=== PATIENT | female | born 1960 | race Caucasian/White ===

== ENCOUNTER 2016-05-12 04:55 | Emergency (ER) | payer OTHER ==
[~2016-05-12] VITALS: Ht 157.5 cm; Wt 86.3 kg
[~2016-05-12 04:55] MED LIST: FLOMAX0.4 MG PO; IBUPROFEN400 MG PO; KEFLEX500 MG PO; MOTRIN IB200 MG PO; MOTRIN800 MG PO; NAPROSYN500 MG PO; NORCO 5/3251 TABLET PO; ZOFRAN ODT4 MG PO
[2016-05-12 05:44] LABS: CHLORIDE 106 mEq/L (99-109); POTASSIUM 3.6 mEq/L (3.7-5.4); SODIUM 139 mEq/L (136-147)
[2016-05-12 05:46] LABS: GLUCOSE 143 mg/dL (70-99)
[2016-05-12 05:48] LABS: ANION GAP 13 MEQ/L (2-14)
[2016-05-12 05:50] LABS: GFR ESTIMATE (CALCULATED) > 59 mL/min/
[2016-05-12 05:51] LABS: UREA NITROGEN (BUN) 13 mg/dL (9-23)
[2016-05-12 05:59] LABS: HEMATOCRIT 43.7 % (36.0-46.0); MCH 30.2 PG (29.0-34.0); MCV 91.6 FL (83-99); MEAN PLAT.VOLUME 11.5 uM^3 (9.5-12.4); PLATELET COUNT 306 K/uL (156-360); RBC DIS.WIDTH-CV 12.6 % (11.8-14.6); RBC DIS.WIDTH-SD 41.7 % (39-53); RED BLOOD COUNT 4.77 M/uL (3.80-5.20)
[2016-05-12] MEDS ORDERED: PREDNISONE50 MG PO (05:59)
[2016-05-12] MEDS ORDERED: DOXYCYCLINE HY100 MG PO (05:59)
[2016-05-12] MEDS ORDERED: HYCODAN SYRUP480 ML PO (05:59)
[2016-05-12 06:36] VITALS: BP 142/77
== END 2016-05-12 06:38 | disposition home or self-care (01) ==
LOC: EME 04:55
DX: J20.9 Acute bronchitis, unspecified (principal); J02.0 Streptococcal pharyngitis; R51 Headache
CPT/HCPCS: 71020; 80048; 85027; 99281; 99285; J2930; J7030

== ENCOUNTER 2016-10-24 21:35 | Emergency (ER) | payer OTHER ==
[~2016-10-24] VITALS: Ht 157.5 cm; Wt 88.3 kg
[~2016-10-24 21:35] MED LIST changes: +DOXYCYCLINE HY100 MG PO; +HYCODAN SYRUP480 ML PO; +PREDNISONE50 MG PO
[2016-10-24 23:10] LABS: HEMATOCRIT 48.4 % (36.0-46.0); MCH 30.3 PG (29.0-34.0); MCHC 32.9 G/DL (30.0-36.0); MCV 92.2 FL (83-99); PLATELET COUNT 274 K/uL (156-360); RBC DIS.WIDTH-CV 13.9 % (11.8-14.6); RED BLOOD COUNT 5.25 M/uL (3.80-5.20)
[2016-10-24 23:19] LABS: CHLORIDE 104 mEq/L (99-109); POTASSIUM 3.8 mEq/L (3.7-5.4); SODIUM 136 mEq/L (136-147)
[2016-10-24 23:21] LABS: GLUCOSE 110 mg/dL (70-99)
[2016-10-24 23:22] LABS: ANION GAP 10 MEQ/L (2-14)
[2016-10-24 23:25] LABS: GFR ESTIMATE (CALCULATED) > 59 mL/min/; UREA NITROGEN (BUN) 16 mg/dL (9-23)
[2016-10-25 00:46] LABS: TOTAL BILIRUBIN 0.6 mg/dL (0.0-1.0)
[2016-10-25 00:47] LABS: ALKALINE PHOSPHATASE 103 IU/L (3-129)
[2016-10-25 00:49] LABS: DIRECT BILIRUBIN 0.2 mg/dL (0.0-0.3)
[2016-10-25 00:50] LABS: LIPASE 25 U/L (1.0-51.0)
[2016-10-25 02:32] LABS: ADD MIUA? YES; BILIRUBIN NEGATIVE; BLOOD LARGE; COLOR YELLOW ((YELLOW)); GLUCOSE (STRIP) NEGATIVE; KETONES NEGATIVE; LEUKOCYTES TRACE; NITRITE NEGATIVE; PROTEIN (STRIP) NEGATIVE; SPECIFIC GRAVITY 1.011 (1.000-1.030); UROBILINOGEN 0.2 MG/DL (0.2-1.0)
[2016-10-25 02:38] LABS: BACTERIA RARE /HPF; EPITHELIAL CELLS 1+ /HPF; MUCUS 2+ /LPF; RED BLOOD CELLS 40-50 /HPF (0-5); UCUL ADDED? NO
[2016-10-25] MEDS ORDERED: ZOFRAN ODT4 MG PO (02:57)
[2016-10-25] MEDS ORDERED: MOTRIN800 MG PO (02:57)
[2016-10-25 03:28] VITALS: BP 145/88
== END 2016-10-25 03:29 | disposition home or self-care (01) ==
LOC: EME 21:35
DX: N13.2 Hydronephrosis with renal and ureteral calculous obstruction (principal); D25.9 Leiomyoma of uterus, unspecified; Z97.5 Presence of (intrauterine) contraceptive device; Z87.442 Personal history of urinary calculi
CPT/HCPCS: 74176; 80048; 80076; 81003; 83690; 85027; 87086; 99281; 99284; J1885

== ENCOUNTER 2016-11-03 09:07 | Inpatient (IN) | payer OTHER ==
[~2016-11-03] VITALS: Ht 157.5 cm; Wt 87.7 kg
[2016-11-03 10:20] LABS: ADD MIUA? YES; BILIRUBIN NEGATIVE; BLOOD SMALL; COLOR AMBER ((YELLOW)); GLUCOSE (STRIP) NEGATIVE; KETONES 5; LEUKOCYTES NEGATIVE; NITRITE POSITIVE; PROTEIN (STRIP) 30; SPECIFIC GRAVITY 1.017 (1.000-1.030)
[2016-11-03 10:23] LABS: MCH 30.1 PG (29.0-34.0); MCHC 32.2 G/DL (30.0-36.0); MCV 93.6 FL (83-99); MEAN PLAT.VOLUME 11.1 uM^3 (9.5-12.4); PLATELET COUNT 257 K/uL (156-360); RBC DIS.WIDTH-CV 13.8 % (11.8-14.6); RBC DIS.WIDTH-SD 47.2 % (39-53); RED BLOOD COUNT 4.81 M/uL (3.80-5.20); WHITE BLOOD COUNT 13.6 K/uL (4.1-10.2)
[2016-11-03 10:50] LABS: BACTERIA 1+ /HPF; BUDDING YEAST 2+; EPITHELIAL CELLS 4+ /HPF; MUCUS TRACE /LPF; RED BLOOD CELLS 30-40 /HPF (0-5); UCUL ADDED? NO
[2016-11-03 10:57] LABS: ANION GAP 7 MEQ/L (2-14); CHLORIDE 103 MEQ/L (99-109); GFR ESTIMATE (CALCULATED) > 59 mL/min/; GLUCOSE 104 mg/dL (70-99); POTASSIUM 4.8 MEQ/L (3.7-5.4); SAMPLE HEMOLYSIS CHECK 0; SAMPLE ICTERIC CHECK 0; SAMPLE LIPEMIA CHECK 0; SODIUM 136 MEQ/L (136-147); UREA NITROGEN (BUN) 14 mg/dL (9-23)
[2016-11-03] MEDS ORDERED: ENDOCET 5-3251 EACH PO (14:30)
[2016-11-03] MEDS ORDERED: CIPRO500 MG PO (14:30)
[2016-11-03] MEDS ORDERED: PYRIDIUM200 MG PO (14:30)
[2016-11-03] MEDS ORDERED: DITROPAN XL5 MG PO (14:31)
[2016-11-03] MEDS ORDERED: MIRENA52 MG IY (14:31)
[2016-11-03 18:27] VITALS: BP 169/77
[2016-11-03 23:07] VITALS: BP 169/74
[2016-11-04 06:04] LABS: HEMATOCRIT 39.8 % (36.0-46.0); MCH 30.8 PG (29.0-34.0); MCHC 32.9 G/DL (30.0-36.0); MCV 93.6 FL (83-99); MEAN PLAT.VOLUME 11.3 uM^3 (9.5-12.4); PLATELET COUNT 232 K/uL (156-360); RBC DIS.WIDTH-SD 47.4 % (39-53); RED BLOOD COUNT 4.25 M/uL (3.80-5.20); WHITE BLOOD COUNT 6.3 K/uL (4.1-10.2)
[2016-11-04 06:17] LABS: ALKALINE PHOSPHATASE 80 IU/L (3-129); ANION GAP 7 MEQ/L (2-14); CHLORIDE 110 MEQ/L (99-109); GFR ESTIMATE (CALCULATED) > 59 mL/min/; GLUCOSE 112 mg/dL (70-99); POTASSIUM 4.1 MEQ/L (3.7-5.4); SAMPLE HEMOLYSIS CHECK 0; SAMPLE ICTERIC CHECK 0; SAMPLE LIPEMIA CHECK 0; SODIUM 139 MEQ/L (136-147); TOTAL BILIRUBIN 0.7 MG/DL (0.0-1.0); UREA NITROGEN (BUN) 10 mg/dL (9-23)
[2016-11-04 07:11] VITALS: BP 149/79
[2016-11-04] MEDS ORDERED: TAMSULOSIN HCL0.4 MG PO (10:41)
== END 2016-11-04 11:38 | disposition home or self-care (01) | DRG 690 ==
LOC: EME 09:07 → EDOF 13:57 → 5EAST 15:27
PROVIDERS: Emergency Medicine; Hospitalist
DX: N13.6 Pyonephrosis (principal); N21.0 Calculus in bladder; K59.00 Constipation, unspecified; R03.0 Elevated blood-pressure reading, without diagnosis of hypertension
CPT/HCPCS: 74000; 74176; 80048; 80053; 81003; 85027; 87040; 87086; 99281; 99285; J0696; J1644; J1885; J3010; J7030; J7050

== ENCOUNTER 2017-08-25 23:01 | Emergency (ER) | payer OTHER ==
[~2017-08-25] VITALS: Ht 157.5 cm; Wt 90.0 kg
[~2017-08-25 23:01] MED LIST changes: +CIPRO500 MG PO; +DITROPAN XL5 MG PO; +ENDOCET 5-3251 EACH PO; +MIRENA52 MG IY; +PYRIDIUM200 MG PO; +TAMSULOSIN HCL0.4 MG PO
[2017-08-25 23:24] LABS: HEMATOCRIT 44.8 % (36.0-46.0); HEMOGLOBIN 15.1 G/DL (11.9-15.5); MCH 31.6 PG (29.0-34.0); MCHC 33.7 G/DL (30.0-36.0); MCV 93.7 FL (83-99); PLATELET COUNT 277 K/uL (156-360); RBC DIS.WIDTH-CV 13.2 % (11.8-14.6); RBC DIS.WIDTH-SD 45.1 % (39-53); RED BLOOD COUNT 4.78 M/uL (3.80-5.20)
[2017-08-25 23:40] LABS: CHLORIDE 109 mEq/L (99-109); POTASSIUM 3.9 mEq/L (3.7-5.4); SODIUM 141 mEq/L (136-147)
[2017-08-25 23:41] LABS: GLUCOSE 105 mg/dL (70-99)
[2017-08-25 23:45] LABS: CREATININE 0.7 mg/dL (0.6-1.3); GFR ESTIMATE (CALCULATED) > 59 mL/min/
[2017-08-25 23:46] LABS: UREA NITROGEN (BUN) 17 mg/dL (9-23)
[2017-08-26 04:19] VITALS: BP 153/76
== END 2017-08-26 04:19 | disposition home or self-care (01) ==
LOC: EME 23:01
DX: N93.8 Other specified abnormal uterine and vaginal bleeding (principal); D25.1 Intramural leiomyoma of uterus; I25.10 Atherosclerotic heart disease of native coronary artery without angina pectoris; Z95.5 Presence of coronary angioplasty implant and graft; Z87.442 Personal history of urinary calculi
CPT/HCPCS: 76856; 80048; 85027; 85610; 86850; 86900; 86901; 93005; 99281; 99284